=== PATIENT | female | born 1960 | race Caucasian/White ===

== ENCOUNTER 2018-12-17 10:57 | Outpatient (CLI) | payer BC ==
--- NOTE | 2018-12-17 12:16 | RAD ---
PA AND LATERAL VIEWS OF THE CHEST: HISTORY: Cough. FINDINGS: The heart size is normal. The aorta is tortuous. The lungs are well expanded without focal areas of consolidation, pneumothoraces, or pleural effusions. No acute osseous abnormalities are seen. IMPRESSION: No acute process. POS: [facility]
== END 2018-12-17 10:58 | disposition home or self-care (01) ==
LOC: BICRAD 10:57
PROVIDERS: ATTEND Family Medicine
DX: R05 Cough (principal)
CPT/HCPCS: 36415; 71046; 80053; 80061; 83036; 84439; 84443; 86803

== ENCOUNTER 2019-11-16 09:31 | Outpatient (CLI) | payer BC ==
--- NOTE | 2019-11-16 11:41 | RAD ---
CHEST 2 VIEWS: HISTORY: Dyspnea. COMPARISON: 12/17/2018. FINDINGS: Heart size is normal. The lungs are clear. No confluent pneumonia, overt edema, pleural effusion, o r other acute process. IMPRESSION: No acute intrathoracic disease. POS: [facility]
== END 2019-11-16 09:32 | disposition home or self-care (01) ==
LOC: BICRAD 09:31
PROVIDERS: ATTEND Internal Medicine Pulmonary Disease
DX: R06.00 Dyspnea, unspecified (principal)
CPT/HCPCS: 71046

== ENCOUNTER 2020-07-07 07:59 | Inpatient (IN) | payer BC ==
[2020-07-07 08:27] LABS: #Basophils 0.1 thou/uL (0.0-0.2); #Eosinphils 0.3 thou/uL (0.0-0.7); #Lymphocytes 4.8 thou/uL (1.20-3.40); #Monocytes 1.4 thou/uL (0.11-0.59); #Neutrophils 11.6 thou/uL (1.40-6.50); %Basophils 0.7 % (0.0-1.0); %Eosinophils 1.8 % (0.0-10.0); %Lymphocytes 26.2 % (21.0-51.0); %Monocytes 7.8 % (0.0-10.0); %Neutrophils 63.6 % (42.0-75.0); Hemoglobin 16.4 g/dL (12.0-16.0); Mean Corpuscular HGB CONC 32.5 g/dL (32.0-36.0); Mean Corpuscular Hemoglobin 29.9 pg (27.0-31.0); Mean Platelet Volume 8.2 fL (7.4-10.4); Platelet Count 326 thou/uL (130-400); RBC Distribution Width 13.4 % (11.5-14.5); Red Blood Cell (RBC) Count 5.49 mill/uL (4.20-5.40); White Blood Cell (WBC) Count 18.2 thou/uL (4.8-10.8)
--- NOTE | 2020-07-07 08:35 | RAD ---
RADIOGRAPH CHEST 1 VIEW: DATE: 07/07/2020 HISTORY: 60-year-old female with dyspnea and chest pain FINDINGS: The visualized lung swift are clear. The cardiomediastinal silhouette and hilar shadows are normal. The lateral costophrenic angles are sharp. The osseous structures appear normal. There is no pneumothorax. IMPRESSION: Negative.
[2020-07-07 08:46] LABS: ALT (SGPT) 26 U/L (8-55); AST (SGOT) 14 U/L (5-34); Albumin 4.2 g/dL (3.4-4.8); Alkaline Phosphatase 68 U/L (40-110); Anion Gap 15 mmol/L (10-20); BUN (Urea Nitrogen) 17 mg/dL (9.8-20.1); Bilirubin, Total 0.7 mg/dL (0.2-1.2); Calc. Creatinine Clearance 0 mL/min (70-130); Calcium 9.7 mg/dL (7.8-10.44); Carbon Dioxide 29 mmol/L (23-31); Chloride 97 mmol/L (98-107); Globulin 3.3 g/dL (2.4-3.5); Glucose 160 mg/dL (80-115); Potassium 3.9 mmol/L (3.5-5.1); Protein, Total 7.5 g/dL (5.8-8.1); Sodium 137 mmol/L (136-145)
[2020-07-07 09:08] LABS: CKMB 0.8 ng/mL (0-6.6)
[2020-07-07] MEDS ORDERED: Aspirin Chewable 81 MG TAB ONE (09:41)
[2020-07-07 09:53] LABS: Bilirubin Negative (Negative); Blood, Urine Negative (Negative); Clarity Turbid (Clear); Glucose, Urine (Dipstick) Normal (Negative); Ketone, Urine Negative (Negative); Leukocyte 500 Leu/uL (Negative); Nitrite Negative (Negative); Protein, Urine (Dipstick) 30 mg/dL (Neg-Trace); Specific Gravity, Urine 1.024 (1.002-1.036); Urobilinogen Normal mg/dL (Less than 2)
[2020-07-07 10:04] LABS: Bacteria/HPF 2+ HPF (None Seen)
--- NOTE | 2020-07-07 10:08 | CT ---
EXAM: CT angiogram of the chest including 3-D rendering: HISTORY: Chest pain COMPARISON: None FINDINGS: There is adequate opacification of the pulmonary arteries. No evidence for aortic aneurysm or dissection. No convincing CT evidence for acute pulmonary embolism. Minimal patchy small foci of groundglass opacity changes noted including the region of the right lowe r lobe, left lower lobe, and left upper lobe favored to represent minimal pneumonitis. No evidence for mediastinal mass or adenopathy. No evidence for pleural or pericardial effusion. In the left upper quadrant there is some abnormal fat stranding adjacent to the tail of the pancreas, spleen, and splenic Flexure of colon. I would favor this to represent some focal acute pancreatitis of the tail of the pancreas. Conceivably this could represent focal area of diverticulit is of the sigmoid colon but I do not see any other diverticulosis changes. IMPRESSION: No convincing CT evidence for acute pulmonary embolism. Left upper quadrant fat stranding adjacent to the tail of pancreas, spleen, and splenic Flexure of co lai, I favor this to represent acute pancreatitis of the tail of the pancreas. Several small foci of groundglass opacity changes within the lungs, nonspecific but favored to repres ent mild patchy pneumonitis.
[2020-07-07] MEDS ORDERED: cefTRIAXone\\ROCEPHIN 1 GM VIAL ONE (10:39)
[2020-07-07 11:48] LABS: Troponin I 0.017 ng/mL (< 0.028)
--- NOTE | 2020-07-07 13:19 | PDOC.HHP ---
Hospitalist HPI Dyspnea on exertion History of Present Illness: Patient states she was short of breath when she woke up this morning. Denies chest pain or abdominal pain. States dyspnea was worse with exertion. History of HTN, hyperlipidemia, was told she was previously pre-diabetic and history of asthma. Patient received her 2nd COVID vaccine 5 days ago. ED Course: Patient presents to ER with dypsnea on exertion. Denies chest pain. Negative CTA for PE, left upper quadrant fat stranding adjacent to the pancreas. Negative chest xray. Leukocytosis present, elevated D-dimer, elevated glucose, elevated lipase. Patient was given Rocephin 1gm and Aspirin 324mg. Allergies/Adverse Reactions: Allergy/AdvReac Type Severity Reaction Status Date / Time No Known Drug Allergies Allergy Verified 07/07/20 15:49 Comments: atenolol TABLET : Strength - 50 mg : ORAL Patient Dose: 50 mg Oral 2 times a day. atorvastatin TABLET : Strength - 40 mg : ORAL Patient Dose: 1 tab(s) Oral once a day (at bedtime). hydroCHLOROthiazide TABLET : Strength - 25 mg : ORAL Patient Dose: 25 mg Oral once a day. metFORMIN TABLET : Strength - 500 mg : ORAL Patient Dose: 500 mg Oral 2 times a day. Vesicare TABLET : Strength - 10 mg : ORAL Patient Dose: unkown mg Oral once a day. Past History: PMHx: PSHx: FHx: Social: Hospitalist HPI ROS Constitutional: denies: fever, chills, sweats, weakness, malaise, other Eyes: denies: pain, vision change, conjunctivae inflammation, eyelid inflammation, redness, other ENT: denies: ear pain, ear discharge, nose pain, nose discharge, nose congestion, mouth pain, mouth swelling, throat pain, throat swelling, other Respiratory: denies: cough, dry, shortness of breath, hemoptysis, SOB with excertion, pleuritic pain, sputum, wheezing, other Gastrointestinal: denies: nausea, vomiting, abdominal pain, diarrhea, const ipation, melena, hematochezia, other Genitourinary: denies: dysuria, frequency, incontinence, hematuria, retention, other Musculoskeletal: denies: neck pain, shoulder pain, arm pain, back pain, hand pain, leg pain, foot pain, other Skin: denies: rash, lesions, yvette, bruising, other Neurological: denies: weakness, numbness, incoordination, change in speech, confusion, seizures, other All other systems reviewed; all pertinent +/- noted in HPI/Subj Hospitalist Exam General Appearance: NAD (coversationally dyspneic), awake alert Eye: PERRL, anicteric sclera ENT: normocephalic atraumatic, no oropharyngeal lesions, moist mucosa Neck: supple, symmetric, no JVD, no thyromegaly, no lymphadenopathy, no carotid bruit Heart: RRR, no murmur, no gallops, no rubs, normal peripheral pulses Respiratory: CTAB, no wheezes, no rales, no ronchi, normal chest expansion, no tachypnea, normal percussion Gastrointestinal: soft, non-tender, non-distended, normal bowel sounds, no palpable masses, no hepatomegaly, no splenomegaly, no bruit Extremities: no cyanosis, no clubbing, no edema Skin: normal turgor, no lesions, no rashes Neurological: cranial nerve grossly intact, normal sensation to touch, no weakness, no focal deficits, no new deficit Musculoskeletal: normal tone, normal strength, no muscle wasting Psychiatric: normal affect, normal behavior, A&O x 3 Hospitalist Results Result Diagrams: 07/07/20 08:11 07/07/20 08:11 Lab results: Laboratory Last Values WBC 18.2 thou/uL (4.8-10.8) H 07/07/20 08:11 RBC 5.49 mill/uL (4.20-5.40) H 07/07/20 08:11 Hgb 16.4 g/dL (12.0-16.0) H 07/07/20 08:11 Hct 50.5 % (36.0-47.0) H 07/07/20 08:11 MCV 92.0 fL (78.0-98.0) 07/07/20 08:11 MCH 29.9 pg (27.0-31.0) 07/07/20 08:11 MCHC 32.5 g/dL (32.0-36.0) 07/07/20 08:11 RDW 13.4 % (11.5-14.5) 07/07/20 08:11 Plt Count 326 thou/uL (130-400) 07/07/20 08:11 MPV 8.2 fL (7.4-10.4) 07/07/20 08:11 Neutrophils % 63.6 % (42.0-75.0) 07/07/20 08:11 Lymphocytes % 26.2 % (21.0-51.0) 07/07/20 08:11 Monocytes % 7.8 % (0.0-10.0) 07/07/20 08:11 Eosinophils % 1.8 % (0.0-10.0) 07/07/20 08:11 Basophils % 0.7 % (0.0-1.0) 07/07/20 08:11 Neutrophils # 11.6 thou/uL (1.40-6.50) H 07/07/20 08:11 Lymphocytes # 4.8 thou/uL (1.20-3.40) H 07/07/20 08:11 Monocytes # 1.4 thou/uL (0.11-0.59) H 07/07/20 08:11 Eosinophils # 0.3 thou/uL (0.0-0.7) 07/07/20 08:11 Basophils # 0.1 thou/uL (0.0-0.2) 07/07/20 08:11 D-Dimer 0.97 *mcg/mL (0.27-0.43) H 07/07/20 08:11 Sodium 137 mmol/L (136-145) 07/07/20 08:11 Potassium 3.9 mmol/L (3.5-5.1) 07/07/20 08:11 Chloride 97 mmol/L (98-107) L 07/07/20 08:11 Carbon Dioxide 29 mmol/L (23-31) 07/07/20 08:11 Anion Gap 15 mmol/L (10-20) 07/07/20 08:11 BUN 17 mg/dL (9.8-20.1) 07/07/20 08:11 Creatinine 1.07 mg/dL (0.6-1.1) 07/07/20 08:11 Estimated GFR (MDRD) 52 07/07/20 08:11 Glucose 160 mg/dL (80-115) H 07/07/20 08:11 Lactic Acid 1.5 mmol/L (0.5-2.2) 07/07/20 11:17 Calcium 9.7 mg/dL (7.8-10.44) 07/07/20 08:11 Total Bilirubin 0.7 mg/dL (0.2-1.2) 07/07/20 08:11 AST 14 U/L (5-34) 07/07/20 08:11 ALT 26 U/L (8-55) 07/07/20 08:11 Alkaline Phosphatase 68 U/L (40-110) 07/07/20 08:11 CK-MB (CK-2) 0.8 ng/mL (0-6.6) 07/07/20 08:11 Troponin I 0.017 ng/mL (< 0.028) 07/07/20 11:22 Serum Total Protein 7.5 g/dL (5.8-8.1) 07/07/20 08:11 Albumin 4.2 g/dL (3.4-4.8) 07/07/20 08:11 Globulin 3.3 g/dL (2.4-3.5) 07/07/20 08:11 Albumin/Globulin Ratio 1.3 g/dL (1.2-2.2) 07/07/20 08:11 Lipase 192 U/L (8-78) H 07/07/20 08:11 Urine Color Yellow (Yellow) 07/07/20 09:35 Urine Clarity Turbid (Clear) A 07/07/20 09:35 Urine pH 6.0 (5.0-9.0) 07/07/20 09:35 Ur Specific [place] 1.024 (1.002-1.036) 07/07/20 09:35 Urine Protein 30 mg/dL (Neg-Trace) A 07/07/20 09:35 Urine Glucose (UA) Normal mg/dL (Negative) 07/07/20 09:35 Urine Ketones Negative mg/dL (Negative) 07/07/20 09:35 Urine Blood Negative (Negative) 07/07/20 09:35 Urine Nitrite Negative (Negative) 07/07/20 09:35 Urine Bilirubin Negative (Negative) 07/07/20 09:35 Urine Urobilinogen Normal mg/dL (Less than 2) 07/07/20 09:35 Ur Leukocyte Esterase 500 Gena/uL (Negative) A 07/07/20 09:35 Urine RBC 4-6 HPF (0-3) A 07/07/20 09:35 Urine WBC 11-20 HPF (0-3) A 07/07/20 09:35 Ur Squamous Epith Cells 11-20 HPF (0-3) A 07/07/20 09:35 Urine Bacteria 2+ HPF (None Seen) A 07/07/20 09:35 Hyaline Casts 0-3 LPF (0-3) 07/07/20 09:35 Hospitalist H&P A/P (1) Dyspnea on exertion Code(s): R06.00 - DYSPNEA, UNSPECIFIED Status: Acute (2) Diabetes mellitus, type 2 Status: Acute (3) Hypertension Code(s): I10 - ESSENTIAL (PRIMARY) HYPERTENSION Status: Chronic (4) Hyperlipidemia Code(s): E78.5 - HYPERLIPIDEMIA, UNSPECIFIED Status: Chronic Plan: 60 y/o female present for Dyspnea on exertion. Denies any chest pain or abdominal pain. PLAN: Dyspnea on exertion: Trend Troponins. Cardiology Consult Hypertension: Vital signs Q4. Continue home Atenolol dosage. Continue home HCTZ dosage. Diabetes: Accucheck AC & HS Continue home Metformin dose. Draw HgbA1c - result of 6.3 Hyperlipidemia: Continue home Atorvastatin dosage. Patient is FULL CODE.
[2020-07-07] MEDS ORDERED: Dextrose 50% Abboject 50 ML SYRINGE SLOW IVP PRN (13:33)
[2020-07-07] MEDS ORDERED: Dextrose 5% in Water 1,000 ML IV PRN (13:33)
[2020-07-07 14:21] LABS: Hemoglobin A1c 6.3 % (4.0-6.0)
[2020-07-07] MEDS ORDERED: Iopamidol-370 76% 500 ML 1 ML ONE (14:31)
[2020-07-07] MEDS: Sodium Chloride 0.9% 1,000 ML IV SCH (15:43)
--- NOTE | 2020-07-07 15:48 | CON ---
DATE OF CONSULTATION: 07/07/2020 REASON FOR CONSULTATION: Shortness of breath. HISTORY OF PRESENT ILLNESS: Ms. Casey is a very pleasant 60-year-old white female. She is a nurse practitioner/PA in our emergency room. She woke up this morning and she was not feeling well. She felt short of breath that was worse with any exertion. She was diaphoretic. She came into the ER and was found to have elevated white count, elevated lipase. D-dimer was elevated, so a CT scan was performed that showed possibly an inflamed pancreas, also some pneumonitis on the basis of her of her lungs. So Cardiology has been consulted for this. She denies any chest pain, tightness, pressure, only this shortness of breath with exertion and she is not feeling well. PAST MEDICAL HISTORY: 1. Hypertension. 2. Hyperlipidemia. 3. Adult onset asthma. 4. Prediabetes. OUTPATIENT MEDICATIONS: 1. Atenolol 50 mg twice a day. 2. Atorvastatin 40 mg at bedtime. 3. Hydrochlorothiazide 25 mg a day. 4. Metformin 500 mg twice a day. 5. VESIcare 10 mg a day. SOCIAL HISTORY: Former tobacco use, none for many years now. SURGICAL HISTORY: 1. x2. 2. Right shoulder surgery x2. ALLERGIES: NO KNOWN DRUG ALLERGIES. FAMILY HISTORY: Noncontributory. REVIEW OF SYSTEMS: A 12-point review of systems was done and was found to be negative other than stated in the history of present illness. PHYSICAL EXAMINATION: VITAL SIGNS: Temperature 98.4, pulse 72, respiratory rate 20, saturating 94% on room air, blood pressure 118/62. GENERAL: Awake, alert, oriented x3, in no distress. HEENT: Normocephalic, atraumatic. NECK: Supple. LUNGS: Clear at the bases. CARDIOVASCULAR: S1 and S2. No S3 or S4. No murmurs. ABDOMEN: Soft. Positive bowel sounds. EXTREMITIES: No edema. SKIN: Warm and dry. LABORATORY DATA: Laboratory work was reviewed. White count of 18, hemoglobin of 16.4, hematocrit 50, platelet count of 326. Coags, D-dimer was high. Chemistry showed sodium 137, potassium is 3.9, chloride of 97, carbon dioxide of 29, anion gap of 15, BUN of 17, creatinine 1.07, GFR 52, glucose of 160, calcium of 9.7. Total bilirubin of 0.7. AST and ALT are normal, alkaline phosphatase was 68. CK-MB was 0.8, and troponin 0.036, which is in the indeterminate range. However, in the next draw x2 has been in the normal range at 0.017 and 0.020. Lipase was 192. Hemoglobin A1c was 6.3. Lactic acid was 1.5. Albumin was 4.2. Chest x-ray shows no acute cardiopulmonary issues. CT of the abdomen and the chest showed no evidence of pulmonary embolism. There is a left upper quadrant fat stranding right next to the tail of the pancreas, spleen, and splenic flexure of the colon that is thought to be pancreatitis of the tail of the pancreas and there are several small foci of ground-glass opacity changes within the lungs which are nonspecific but may represent mild patchy pneumonitis. ASSESSMENT: 1. Shortness of breath. 2. Possible acute pancreatitis. 3. Acute pneumonitis. PLAN: 1. We will get an echocardiogram to assess LV function and valvular structures. 2. We will ask GI to evaluate to see if they think that this is in fact a pancreatitis or if there is any alternative diagnosis that could explain the abdominal findings coupled with the lung findings. 3. Unlikely to be cardiac in nature. At this point, I am not too worried about her heart. Thank you for letting us participate in the care of your patient. We will follow. Job ID: [id number]
[2020-07-07 15:50] VITALS: BMI 36.1
[2020-07-07] MEDS: Ibuprofen 200 MG TAB PO PRN (19:42)
[2020-07-08] MEDS: Sodium Chloride 0.9% 1,000 ML IV SCH ×2 (01:24→10:10)
[2020-07-08] MEDS ORDERED: cefTRIAXone Sodium 1,000 MG in Syringe 0 ML IVPB SCH (07:00)
[2020-07-08] MEDS: Ibuprofen 200 MG TAB PO PRN ×2 (08:26→17:48)
[2020-07-08] MEDS: Enoxaparin Sodium 40 MG/0.4 ML SYRINGE SC SCH (08:26)
[2020-07-08 09:48] LABS: Hemoglobin 14.9 g/dL (12.0-16.0); Mean Corpuscular HGB CONC 35.3 g/dL (32.0-36.0); Mean Corpuscular Hemoglobin 33.3 pg (27.0-31.0); Mean Corpuscular Volume 94.4 fL (78.0-98.0); Platelet Count 224 thou/uL (130-400); RBC Distribution Width 13.4 % (11.5-14.5); Red Blood Cell (RBC) Count 4.48 mill/uL (4.20-5.40); White Blood Cell (WBC) Count 14.5 thou/uL (4.8-10.8)
[2020-07-08 10:17] LABS: ALT (SGPT) 20 U/L (8-55); AST (SGOT) 14 U/L (5-34); Albumin 3.5 g/dL (3.4-4.8); Alkaline Phosphatase 57 U/L (40-110); Anion Gap 13 mmol/L (10-20); BUN (Urea Nitrogen) 13 mg/dL (9.8-20.1); Bilirubin, Total 0.8 mg/dL (0.2-1.2); Calc. Creatinine Clearance 126 mL/min (70-130); Calcium 8.8 mg/dL (7.8-10.44); Carbon Dioxide 25 mmol/L (23-31); Chloride 102 mmol/L (98-107); Globulin 3.1 g/dL (2.4-3.5); Glucose 134 mg/dL (80-115); Lipase 66 U/L (8-78); Potassium 3.7 mmol/L (3.5-5.1); Protein, Total 6.6 g/dL (5.8-8.1); Sodium 136 mmol/L (136-145)
[2020-07-08] MEDS ORDERED: cefTRIAXone\\ROCEPHIN 1 GM in Sodium Chloride 0.9% 100 ML IVPB SCH (11:00)
--- NOTE | 2020-07-08 13:35 | RAD ---
EXAM: Chest PA and lateral: HISTORY: Shortness of breath COMPARISON: 11/16/2019, 07/07/2020 FINDINGS: Heart size:Within normal limits. Lungs:Minimal linear parenchymal changes in the left lower lobe evidence for atelectasis with minimal costophrenic angle blunting evidence for small pleural effusion. Unremarkable right lung. IMPRESSION: Developing left lower lobe horizontal parenchymal changes evidence for minimal subsegmental atelectas is with probable small left pleural effusion but no other acute process.
[2020-07-08 13:54] LABS: Actual Bicarbonate (HCO3a) 27.6 mEq/L (22-28); Base Excess (BEa) 3.1 mEq/L (-2.0 to +3.0); CO2 Tension 41.7 mmHg (35.0-45.0); Calcium, Ionized (arterial) 1.16 mmol/L (1.12-1.30); Carboxyhemoglobin (COHb) 1.5 gm% (0.0-3.0); Hemoglobin (Hb) 15.2 g/dL (12.0-16.0); O2 Tension (PaO2), arterial 63.9 mmHg (> 80.0); Potassium - ABG Lab 3.47 mmol/L (3.70-5.30); pH, Arterial 7.44 (7.35-7.45)
[2020-07-08 13:58] LABS: ALV-art Gradient 33.705 mmHg (0-20); Puncture Site LRA
[2020-07-08 15:25] LABS: SARS-CoV-2 IgG Ab Non-Reactive (NonReactive); SARS-CoV-2 IgG Index 0.08 S/CO (< 1.40)
--- NOTE | 2020-07-08 15:59 | PDOC.CPN ---
- Subjective Date: 07/08/20 Time: 15:57 Interval history: She continues to feel SOB with exertion, her O2 sats when walking go down to the mid to low 80's. No chest pain, no abdominal pain. Her lipase is back to normal. - Review of Systems General: denies: fever/chills, weight/appetite/sleep changes, night sweats, fatigue Respiratory: reports: shortness of breath, exercise intolerance. denies: cough, congestion Cardiovascular: denies: chest pain, palpitation, edema, paroxysmal nocturnal dyspnea, orthopnea Gastrointestinal: denies: nausea, vomiting, diarrhea, constipation, abd pain, GI bleeding Musculoskeletal: denies: pain, tenderness, stiffness, swelling, arthritis/arthralgias Neurological: denies: numbness, syncope, seizure, weakness - Objective Allergies/Adverse Reactions: Allergies Allergy/AdvReac Type Severity Reaction Status Date / Time No Known Drug Allergies Allergy Verified 07/07/20 15:49 Visit Medications: Current Medications Dextrose/Water (Dextrose 50% Abboject 50 Ml Syringe) 25 gm SLOW IVP PRN PRN PRN Reason: Hypoglycemia Enoxaparin Sodium (Enoxaparin Sodium 40 Mg/0.4 Ml Syringe) 40 mg SC 0900 [facility] Last Admin: 07/08/20 08:26 Dose: 40 mg Documented by: Glucagon (Glucagon 1 Mg/Ml Vial) 1 mg IM PRN PRN PRN Reason: Hypoglycemia Dextrose/Water (D5w) 1,000 mls @ 0 mls/hr IV .Q0M PRN PRN Reason: Hypoglycemia Ceftriaxone Sodium 1 gm/ (Sodium Chloride) 100 mls @ 200 mls/hr IVPB 1100 [facility] Last Admin: 07/08/20 10:10 Dose: 100 mls Documented by: Ibuprofen (Ibuprofen 200 Mg Tab) 400 mg PO Q4H PRN PRN Reason: Headache, Aches or Pain Last Admin: 07/08/20 08:26 Dose: 400 mg Documented by: Loratadine (Loratadine 10 Mg Tab) 10 mg PO DAILY PRN PRN Reason: Allergies Last Admin: 07/08/20 12:37 Dose: 10 mg Documented by: Mometasone Furoate/Formoterol Fumar (Mometasone 200 Mcg/Formoterol 5 Mcg 120 Puff Inhaler) 1 puff INH BID-RT [facility] Vital Signs & Weight: Vital Signs Temp Pulse Resp BP Pulse Ox 07/08/20 11:57 97.6 F 92 20 110/56 L 95 07/08/20 08:13 99.1 F 100 24 H 127/58 L 92 L 07/08/20 04:04 98.2 F 85 16 115/62 Weight 216 lb 14.72 oz - Physical Exam General: alert & oriented x3 HEENT: mucus membranes moist Neck: supple neck Cardiac: regular rate and rhythm Lungs: other (Left base crackles.) Neuro: grossly intact Abdomen: active bowel sounds Extremities: no edema Skin: clear Musculoskeletal: no pain - Labs Result Diagrams: 07/08/20 09:28 07/08/20 09:28 Troponin/CKMB CK-MB (CK-2) 0.8 ng/mL (0-6.6) 07/07/20 08:11 Troponin I 0.020 ng/mL (< 0.028) 07/07/20 14:03 - Telemetry Sinus rhythms and dysrhythmias: sinus rhythm - Assessment/Plan Assessment/Plan: 1. SOB 2. Possible pneumonitis? 3. Possible UTI 4. Possible pancreatitis, unlikely, values all normalized . PLAN: - Lipase back to normal, no symptoms to suggest pancreatitis, unlikely this is an issue. - She is feeling better with only IV rocephin. - Her CXR today showed linear opacity on left base which goes with her physical exam with crackles on that side. - Unlikely her SOB is cardiac in nature with normal LV function, and normal BNP and troponins. - I suspect a developing pulmonary infection? - Would recommend pulmonary consultation and possibly ID.
--- NOTE | 2020-07-08 16:11 | CON ---
DATE OF CONSULTATION: 07/08/2020 REASON FOR CONSULTATION: Possible pancreatitis. CONSULTING PROVIDER: Brodie Cox MD. HISTORY OF PRESENT ILLNESS: The patient is a 60-year-old female with past medical history of hypertension, hyperlipidemia, asthma, impaired fasting glucose, and GERD, presenting with complaints of shortness of breath. She states that she was in her usual state of health until yesterday morning when upon traveling from her car to her place of work, she became increasingly short of breath with exertion and found it very difficult to catch her breath even with stopping physical activity. She currently works in the ER and was evaluated by the physicians in the ER at that time and was also noted to have conversational dyspnea as well. However, she denied any additional symptoms associated with that including no symptoms of nausea, vomiting, fevers, chills, hematemesis, melena, hematochezia, abdominal pain, dysphagia, odynophagia, diarrhea, constipation, or recent weight loss. She also denied any chest pain or pain with deep inspiration. Subsequently, she underwent evaluation in the ER and was noted to have a significantly elevated white blood cell count in addition to CT findings concerning for an inflammatory/infective process in the bilateral lower lobes of the lung, but also with inflammation around the distal pancreatic tail concerning for the presence of acute pancreatitis. Today, she states that she remains relatively unchanged and continues to have the shortness of breath primarily with exertion only. She currently denies any abdominal pain, nausea, vomiting, recent alcohol abuse or changes in her medications. REVIEW OF SYSTEMS: A 10 category review of systems was obtained with all responses negative except for the pertinent positives as listed in HPI. PAST MEDICAL HISTORY: As per HPI. PAST SURGICAL HISTORY: x2, right shoulder surgery x2. FAMILY HISTORY: Denies any GI malignancies. SOCIAL HISTORY: Denies any tobacco or illicit drug use although she is a former smoker. Drinks approximately 1 to 2 glasses of wine every 1 to 2 weeks. OUTPATIENT MEDICATIONS: 1. Atenolol 50 mg twice a day. 2. Atorvastatin 40 mg at bedtime. 3. Hydrochlorothiazide 25 mg daily. 4. Metformin 500 mg twice daily. 5. VESIcare 10 mg daily. ALLERGIES: NO KNOWN DRUG ALLERGIES. PHYSICAL EXAMINATION: VITAL SIGNS: Temperature 97.6, pulse 92, blood pressure 110/56, respiratory rate 20, saturating 95% on room air. GENERAL: The patient was lying in bed, in no acute distress. Alert and oriented x4. No conversational dyspnea noted today. HEENT: Normocephalic, atraumatic. NECK: Supple. No JVD or scleral icterus noted. CARDIOVASCULAR: Regular rate and rhythm with no discernible murmurs, gallops, or rubs. RESPIRATORY: Clear to auscultation in the bilateral upper lung swift. Mild diminished air flow in the bilateral lower lung swift, but was difficult to discern. ABDOMEN: Normoactive bowel sounds. Soft, nontender, and nondistended. EXTREMITIES: No cyanosis, clubbing, or edema. LABORATORY DATA: CBC with a white blood cell count of 14.5, hemoglobin 14.9, hematocrit 42.2, platelets 224. Chemistry with a sodium of 136, potassium 3.7, chloride 102, CO2 of 25, BUN 13, creatinine 0.72, glucose 134. AST 14, ALT 20, alkaline phosphatase 57, total bilirubin 0.8. Lipase on admission 192, lipase today 66. Albumin 4.2. Urinalysis was consistent with contamination. IMAGING DATA: CT scan of the chest was performed on July 07, 2020, which showed no convincing CT evidence for acute pulmonary embolism. However, minimal patchy small foci of ground-glass opacities were seen in the right lower lobe, left lower lobe and left upper lobe, favored to represent a minimal pneumonitis. There was no evidence of mediastinal mass or adenopathy. In the left upper quadrant, there was some abnormal fat stranding adjacent to the tail of the pancreas, spleen, and splenic flexure of the colon with the Radiology read favoring focal acute pancreatitis in the tail of the pancreas. It could represent focal changes with diverticulitis of the sigmoid colon, but there were no associated diverticular changes in the region. ASSESSMENT AND PLAN: The patient is a 60-year-old female with past medical history of hypertension, hyperlipidemia, asthma, impaired fasting glucose, and GERD, presenting with significant dyspnea on exertion and abnormal GI imaging showing possible pancreatitis versus diverticulitis. Abnormal GI imaging. The patient initially presented to the ER with significant dyspnea on exertion that was associated with conversational dyspnea and diaphoresis of skin. She is currently undergoing a pulmonary and cardiology workup as part of her symptoms associated with that. However, during the course of her workup, she had a CT scan of the chest (noncontrast) that showed the presence of nonspecific fat stranding in the region of the tail of the pancreas and the hepatic flexure of the colon. On further evaluation of her physical exam and laboratory findings, she does have an elevated white cell count that could be indicative of an inflammatory or infectious type process. However, her lipase was not greater than three times upper limit of normal nor does she have any typical abdominal pain consistent with acute pancreatitis. At this time, she only meets one criteria for acute pancreatitis and would necessarily need to have increased abdominal pain and laboratory findings consistent with the diagnosis in order to confirm the diagnosis. Also, she does have some inflammation about the splenic flexure that may be indicative of diverticular disease, but she does not have any pain in any abdominal quadrants nor has she had any significant change in her bowel habits that may clue into a diverticular type picture. At this time given her significantly elevated white blood cell count, the minimal ground-glass opacity seen on CT, conversational dyspnea and dyspnea on exertion, these findings seem to be more consistent with a COVID-19 infection. There are some case reports of a COVID infection causing acute pancreatitis, but in those cases presented, they were more obvious for acute pancreatitis. RECOMMENDATIONS: 1. Would continue with Cardiology and Pulmonary workup as you are doing. 2. The patient does not currently meet criteria for acute pancreatitis nor does she meet criteria for acute diverticulitis. No treatment for pancreatitis or antibiotic treatment for diverticulitis is indicated at this time. 3. No endoscopic evaluation is indicated at this time especially in light of worsening respiratory status. 4. Would follow up on her COVID serologies and/or review literature for possible side effects related to administration of the second dose of the Moderna vaccine. With no obvious GI abnormalities or problems, I would sign off at this time. Please call with any additional questions. Job ID: [id number]
--- NOTE | 2020-07-08 18:12 | PDOC.HOSPP ---
- Subjective Encounter Date: 07/08/20 Encounter Time: 09:00 Subjective: F/u: hypoxia on exertion The patient states she still feels short of breath ambulating to the bathroom. She ambulated and dropped to 89% after two minutes. Nurse stated she appeared congested. She was given claritin and symbicort and after repeat home oxygen evaluation showed that she was 89% on exertion. The patient denies cough, runny nose, sore throat. She states she takes symbicort at home for asthma and as long as she takes it she doesn't get the cough She denies abdominal pain, nausea, or vomiting. She had some left UQ pain yesterday which resolved - Objective Vital Signs & Weight: Vital Signs (12 hours) Temp Pulse Resp BP Pulse Ox 07/08/20 17:48 99.9 F H 07/08/20 16:30 98.1 F 94 14 118/61 94 L 07/08/20 11:57 97.6 F 92 20 110/56 L 95 07/08/20 08:13 99.1 F 100 24 H 127/58 L 92 L Weight Weight 216 lb 14.72 oz I&O: 07/07/20 07/08/20 07/09/20 06:59 06:59 06:59 Intake Total 640 Balance 640 Result Diagrams: 07/08/20 09:28 07/08/20 09:28 Additional Labs: Accuchecks 07/08/20 07/08/20 07/08/20 16:40 11:42 05:52 POC Glucose 136 H 150 H 121 H 07/07/20 20:29 POC Glucose 134 H Hospitalist ROS - Review of Systems Constitutional: denies: fever, chills - Medication Medications: Active Medications Generic Name Dose Route Start Last Admin Trade Name Freq PRN Reason Stop Dose Admin Enoxaparin Sodium 40 mg 07/08/20 09:00 07/08/20 08:26 Enoxaparin Sodium 40 Mg/0.4 Ml Syringe SC 40 mg 0900 ROCCO Administration Ceftriaxone Sodium 1 gm/ 100 mls @ 200 mls/hr 07/08/20 11:00 07/08/20 10:10 Sodium Chloride IVPB 100 mls 1100 ROCCO Administration Ibuprofen 400 mg 07/07/20 19:26 07/08/20 17:48 Ibuprofen 200 Mg Tab PO 400 mg Q4H PRN Administration Headache, Aches or Pain Loratadine 10 mg 07/09/20 09:00 07/08/20 12:37 Loratadine 10 Mg Tab PO 10 mg DAILY PRN Administration Allergies Hospitalist Exam Vitals: Vital Signs (12 hours) Temp Pulse Resp BP Pulse Ox 07/08/20 17:48 99.9 F H 07/08/20 16:30 98.1 F 94 14 118/61 94 L 07/08/20 11:57 97.6 F 92 20 110/56 L 95 07/08/20 08:13 99.1 F 100 24 H 127/58 L 92 L Weight Weight 216 lb 14.72 oz General Appearance: NAD, awake alert Eye: PERRL, anicteric sclera ENT: normocephalic atraumatic, no oropharyngeal lesions Neck: no JVD Heart: RRR, no murmur, no gallops, no rubs Respiratory: CTAB, no wheezes, no rales, no ronchi Gastrointestinal: soft, non-tender, non-distended, normal bowel sounds Extremities: no cyanosis, no clubbing, no edema Skin: normal turgor, no lesions, no rashes Hosp A/P - Plan CTA thorax: acute pancreatitis of tail of pancreas. LUQ fat stranding. Ground glass opacity, mild patchy pneumonitis ECHO: EF 60-65%, grade 1 diastolic dysfunction This is a 60 year old female who presented to the Er with shortness of breath on exertion, still hypoxic currently Dyspnea on exertion with pneumonitis - troponins negative. ECHO showed diastolic dysfunction. Cardiology does not think it is cardiac - she denies cough. Does have pneumonitis on CT scan. COVID antibody negative. She does have low grade temp 99 and high CRP. Will try dose of prednisone - will consult pulmonary in the am UTI - patient had a WBC of 18, which has come down to 14. UA showed turbid urine, 11-20 WBC. Started on ceftriaxone, will continue for now. Preliminary blood and urine cultures negative History of asthma - continue home inhaled steroids Prediabetes - A1C 6.3 Hypothyroidism - check TSH. Continue levothyroxine
[2020-07-08] MEDS: Mometasone 200 MCG/Formoterol 5 MCG 120 PUFF INHALER INH SCH (18:23)
[2020-07-08] MEDS ORDERED: predniSONE 20 MG TAB PO SCH (19:15)
[2020-07-08] MEDS ORDERED: Levothyroxine 175 MCG TAB PO SCH (19:15)
[2020-07-09] MEDS ORDERED: Levothyroxine 175 MCG TAB PO SCH (06:00)
[2020-07-09] MEDS: Mometasone 200 MCG/Formoterol 5 MCG 120 PUFF INHALER INH SCH (08:09)
[2020-07-09] MEDS ORDERED: Loratadine 10 MG TAB PO PRN (09:00)
[2020-07-09] MEDS ORDERED: Cefdinir 300 MG CAP PO SCH (09:00)
[2020-07-09] MEDS: Enoxaparin Sodium 40 MG/0.4 ML SYRINGE SC SCH (09:20)
[2020-07-09 10:17] LABS: Hemoglobin 14.9 g/dL (12.0-16.0); Mean Corpuscular HGB CONC 33.5 g/dL (32.0-36.0); Mean Corpuscular Hemoglobin 31.9 pg (27.0-31.0); Mean Corpuscular Volume 95.2 fL (78.0-98.0); Platelet Count 244 thou/uL (130-400); RBC Distribution Width 13.1 % (11.5-14.5); Red Blood Cell (RBC) Count 4.67 mill/uL (4.20-5.40); White Blood Cell (WBC) Count 12.9 thou/uL (4.8-10.8)
[2020-07-09] MEDS ORDERED: Hydrochlorothiazide 25 MG TAB PO SCH (11:30)
[2020-07-09] MEDS ORDERED: predniSONE 20 MG TAB PO SCH (11:30)
--- NOTE | 2020-07-09 12:54 | PDOC.DS.DS ---
Provider Date of Admission: 07/07/20 11:10 Date of Discharge: 07/09/20 Admitting Provider: Debra Cartagena MD Consultations: Cardiology (Dr. Cox), Pulmonary (Dr. Zamora) Primary Care Physician: Geovany Pastrana, DO Course Hospital Course: Discharge Diagnoses: Dyspnea on exertion secondary to pneumonitis Sinus tachycardia on exertion Hypertension Prediabetes Brief HPI: This is a 60 year old female who presented to the hospital due to feeling short of breath on exertion while she was driving to work. The patient stated she was diaphoretic, but had no chest pain or palpitations. She had received her second COVID vaccine 5 days ago. She had WBC of 18. UA showed tu rbid urine with 11-20 squamous epithelial cells. CTA showed patchy pneumonitis. She was given IV ceftriaxone and admitted for further workup. Hospital Course: Dyspnea on exertion with pneumonitis: the patient had three sets of troponins that were negative. ECHO showed diastolic dysfunction. Cardiology was consulted and did not think this was a cardiac cause of shortness of breath. When the patient was ambulating, she was noted to be congested by nursing staff and had a respiratory rate of 30 and oxygen saturation of 89% on room air after walking for two minutes. CRP was elevated at 20. The patient was started on prednisone and dulera with significant improvement. Repeat ambulatory oxygen saturation showed that she maintained her saturation above 91% on room air. She was persistently tachycardic to 115 while ambulating however. Cardiology did not feel the tachycardia needed to be treated since it was likely a compensatory response. The patient was discharged with three more days of prednisone to complete a five day course, and she was advised to resume her symbicort. She was also discharged with cefdinir and doxycycline for five more days to complete 7 days of antibiotics. She will follow up with Dr. Zamora in a month and Dr. Cox in a week. Leukocytosis: the patinet had a WBC Of 18 which improved to 12.9. CTA showed pneumonitis. UA showed turbid urine with 11-20 WBC and squamous epithelial cells. Urine culture showed 10,000 to 25,000 CFU and she had no symptoms of a UTI. Blood cultures were negative. She should get a repeat CBC in a week. Prediabetes: A1C was 6.3. The patient will be resumed on her home metformin Hypertension: the patient states she was on metoprolol . THis will be discontinued per cardiology recommendations due to her history of asthma. SHe will resume her hydrochlorothiazide. Pertinent Studies: Chest Xray 07/07: negative CTA thorax 07/07: groundglass opacity in the right lower lobe, left lower lobe and left upper lobe representing minimal pneuomnitis. LUQ fat stranding possibly representing acute pancreatitis of the tail of the pancreas. Chest Xray 07/08: developing left lower lobe horizontal parenchymal changes with probable small left pleural effusion Resuscitation Status: 07/07/20 13:33 Resuscitation Status Routine Co-Sign Provider: Resuscitation Status: FULL: Full Resuscitation Lab Results: 07/09/20 10:00 07/08/20 09:28 Abnormal Lab Results - Last 48 hrs 07/07/20 14:03: Hemoglobin A1c 6.3 H 07/08/20 09:28: WBC 14.5 H, MCH 33.3 H 07/08/20 09:28: Albumin/Globulin Ratio 1.1 L 07/08/20 13:11: ABG O2 Sat (Measured) 93.0 L, ABG Base Excess 3.1 H, ABG Oxyhemoglobin 91.3 L, ABG Deoxyhemoglobin 6.9 H, A-a O2 Gradient 33.705 H, Potassium 3.47 L 07/08/20 15:40: C-Reactive Protein 20.80 H 07/08/20 15:40: Ferritin 386.46 H 07/08/20 15:40: ESR Westergren 46 H 07/08/20 15:40: D-Dimer 1.89 H 07/09/20 10:00: WBC 12.9 H, MCH 31.9 H Microbiology - Entire Visit 07/07/20 09:35 Urine clean catch Urine Culture - Final 07/07/20 11:17 Venous blood - Right Hand Blood Culture - Preliminary Specimen has been received and culture in progress. No Growth to date. 07/07/20 11:17 Venous blood - Right Arm Blood Culture - Preliminary Specimen has been received and culture in progress. No Growth to date. Vitals: Vital Signs (12 hours) Temp Pulse Resp BP Pulse Ox 07/09/20 12:09 98.6 F 85 17 120/84 97 07/09/20 08:15 97 07/09/20 08:09 94 16 93 L 07/09/20 03:51 97.8 F 88 18 100/59 L 92 L Weight Weight 218 lb 1.6 oz Physical Exam: The patient was seen and examined on the day of discharge. General Appearance: NAD, awake alert Eye: PERRL, anicteric sclera ENT: normocephalic atraumatic, no oropharyngeal lesions Neck: no JVD Respiratory: no wheezes, no rales, no ronchi, normal percussion Respiratory - other findings: diminished breath sounds in the left lower lobe Cardiovascular: RRR, no murmur, no gallops, no rubs Gastrointestinal: soft, non-tender, non-distended, normal bowel sounds Extremities: no cyanosis, no clubbing, no edema Skin: normal turgor, no lesions, no rashes Problem Time Spent in discharge related activities (mins): 30 Plan Prescriptions: Cefdinir [Omnicef] 300 mg PO BID #9 cap Doxycycline [Vibramycin] 100 mg PO BID #10 cap Home Medications: Medication Instructions Recorded Confirmed Type Hydrochlorothiazide 25 mg PO BID 07/07/20 07/07/20 History Levothyroxine Sodium 175 mcg PO QAM 07/07/20 07/07/20 History [Levothyroxine] metFORMIN [Glucophage] 500 mg PO BID-WM 07/07/20 07/07/20 History Cefdinir [Omnicef] 300 mg PO BID #9 cap 07/09/20 Rx Doxycycline [Vibramycin] 100 mg PO BID #10 cap 07/09/20 Rx Allergies: No Known Drug Allergies Allergy (Verified 07/07/20 15:49) Activity:: Activity as Tolerated Nourishment:: Heart Healthy Diet Referrals: Geovany Pastrana DO [Primary Care Provider] - Disposition: HOME Quality CORE MEASURES:: N/A
--- NOTE | 2020-07-09 14:19 | PDOC.CPN ---
- Subjective Date: 07/09/20 Time: 14:18 Interval history: Feeling much better. Still SOB but improved. - Review of Systems General: denies: fever/chills, weight/appetite/sleep changes, night sweats, fatigue Respiratory: reports: shortness of breath. denies: cough, congestion, exercise intolerance Cardiovascular: denies: chest pain, palpitation, edema, paroxysmal nocturnal dyspnea, orthopnea Gastrointestinal: denies: nausea, vomiting, diarrhea, constipation, abd pain, GI bleeding Musculoskeletal: denies: pain, tenderness, stiffness, swelling, arthrit is/arthralgias Neurological: denies: numbness, syncope, seizure, weakness - Objective Allergies/Adverse Reactions: Allergies Allergy/AdvReac Type Severity Reaction Status Date / Time No Known Drug Allergies Allergy Verified 07/07/20 15:49 Visit Medications: Current Medications Cefdinir (Cefdinir 300 Mg Cap) 300 mg PO BID [facility] Last Admin: 07/09/20 09:19 Dose: 300 mg Documented by: Dextrose/Water (Dextrose 50% Abboject 50 Ml Syringe) 25 gm SLOW IVP PRN PRN PRN Reason: Hypoglycemia Enoxaparin Sodium (Enoxaparin Sodium 40 Mg/0.4 Ml Syringe) 40 mg SC 0900 [facility] Last Admin: 07/09/20 09:20 Dose: 40 mg Documented by: Glucagon (Glucagon 1 Mg/Ml Vial) 1 mg IM PRN PRN PRN Reason: Hypoglycemia Hydrochlorothiazide (Hydrochlorothiazide 25 Mg Tab) 25 mg PO NOW [facility] Stop: 07/09/20 15:00 Last Admin: 07/09/20 12:07 Dose: 25 mg Documented by: Dextrose/Water (D5w) 1,000 mls @ 0 mls/hr IV .Q0M PRN PRN Reason: Hypoglycemia Ibuprofen (Ibuprofen 200 Mg Tab) 400 mg PO Q4H PRN PRN Reason: Headache, Aches or Pain Last Admin: 07/08/20 17:48 Dose: 400 mg Documented by: Levothyroxine Sodium (Levothyroxine 175 Mcg Tab) 175 mcg PO 0600 [facility] Last Admin: 07/09/20 05:10 Dose: 175 mcg Documented by: Loratadine (Loratadine 10 Mg Tab) 10 mg PO DAILY PRN PRN Reason: Allergies Last Admin: 07/08/20 12:37 Dose: 10 mg Documented by: Mometasone Furoate/Formoterol Fumar (Mometasone 200 Mcg/Formoterol 5 Mcg 120 Puff Inhaler) 1 puff INH BID-RT ROCCO Last Admin: 07/09/20 08:09 Dose: 1 puff Documented by: Prednisone (Prednisone 20 Mg Tab) 40 mg PO NOW ROCCO Stop: 07/09/20 15:00 Last Admin: 07/09/20 12:07 Dose: 40 mg Documented by: Vital Signs & Weight: Vital Signs Temp Pulse Resp BP Pulse Ox 07/09/20 12:09 98.6 F 85 17 120/84 97 07/09/20 08:15 97 07/09/20 08:09 94 16 93 L 07/09/20 03:51 97.8 F 88 18 100/59 L 92 L Weight 218 lb 1.6 oz - Physical Exam General: alert & oriented x3 HEENT: mucus membranes moist Neck: supple neck Cardiac: regular rate and rhythm Lungs: other (left crackles.) Neuro: grossly intact Abdomen: active bowel sounds Extremities: no edema Skin: clear Musculoskeletal: no pain - Labs Result Diagrams: 07/09/20 10:00 07/08/20 09:28 Troponin/CKMB CK-MB (CK-2) 0.8 ng/mL (0-6.6) 07/07/20 08:11 Troponin I 0.020 ng/mL (< 0.028) 07/07/20 14:03 - Telemetry Sinus rhythms and dysrhythmias: sinus rhythm - Assessment/Plan Assessment/Plan: 1. Atypical pneumonia PLAN: - Will sign off. Please call with any questions.
[2020-07-09 16:34] VITALS: BP 132/78; TEMP 98.3
--- NOTE | 2020-07-09 19:44 | CON ---
DATE OF CONSULTATION: 07/09/2020 HISTORY OF PRESENT ILLNESS: Ms. Casey is very pleasant 60-year-old female, admitted from the emergency department with complaints of cough and chest discomfort. She felt short of breath as well. CT scanning in the ER showed small patchy bilateral infiltrates. I was consulted by Cardiology and talked to Dr. Cox about her. He has essentially ruled out cardiac component to all of this. PAST MEDICAL HISTORY: Remarkable for hypertension, lipid disorder, asthma, and prediabetes. MEDICATIONS: Prior to this admission, she was on; 1. Beta alyssa. 2. Atorvastatin. 3. Hydrochlorothiazide. 4. Metformin. 5. VESIcare. SOCIAL HISTORY: She is a nonsmoker and nondrinker. PAST SURGICAL HISTORY: She has had two shoulder surgeries and two C-sections in the past. REVIEW OF SYSTEMS: Ten points otherwise negative. PHYSICAL EXAMINATION: GENERAL: She is in no distress. VITAL SIGNS: She is afebrile. Heart rate is in 80s, respiratory rates in the teens, oximetry is 97 on room air, blood pressure 120/84. HEAD AND NECK: Unremarkable. LUNGS: Clear. HEART: Regular rhythm. ABDOMEN: Soft. EXTREMITIES: Without edema. LABORATORY DATA: White count 12.9, hemoglobin 14.9, platelets 244. Electrolytes were normal on the . IMPRESSION: Atypical pneumonia. I would send her home on Levaquin 500 mg a day for seven more days, and prednisone 20 mg for four days, then 10 mg for four days. [facility] at her request. There is no indication for home oxygen. I have suggested she follow up with a chest x-ray in 6 weeks. This is a 70 min consult with greater than 50% of the time spent on the unit with coordination of care. Job ID: [id number] [facility]
--- NOTE | 2020-07-10 06:54 | CON ---
DATE OF CONSULTATION: HISTORY OF PRESENT ILLNESS: Meghann Casey is a 60-year-old female whom I have seen in the office before, came to the hospital after developing shortness of breath, coming to work, could not breathe, could not walk 50 feet. In the ER, CT chest was done, which showed no PE, but evidence of questionable left-sided infiltrate. She had no fever. No chills. No wheezing. She has been placed on Singulair 10 mg a day and Symbicort inhaler to be taken as needed, which she says she was using regularly. She has been seen by Cardiology. Cardiac workup was negative. This morning, she says when she is walking, her heart rate went up to 120, respiratory rate went up to 25, but otherwise her oxygen saturation remains adequate. In the ER, her saturations were 98% on room air, respiratory rate 20, and blood pressure was 126/87. PAST MEDICAL HISTORY: 1. Hypertension. 2. High cholesterol. 3. Chronic cough. 4. BPH. MEDICATIONS: Chronic medicine from home: 1. Metformin 500. 2. Synthroid 175. 3. Hydrochlorothiazide 25 mg twice a day. 4. Singulair 10. 5. Symbicort. PREVIOUS SURGERIES: Have included otherwise: 1. Right shoulder surgery. 2. . SOCIAL HISTORY: No smoking, former smoker. ALLERGIES: NONE. REVIEW OF SYSTEMS: Ten-point negative. PHYSICAL EXAMINATION: VITAL SIGNS: Temperature 98, pulse 70, respiratory rate 16, saturations 98% on room air, and blood pressure 100/59. CHEST: No wheezing. No crackles. CARDIAC: Normal S1 and S2. No gallops. ABDOMEN: No masses. LABORATORY DATA: White count 12,000. D-dimer slightly elevated. C-reactive protein is 20. Ferritin 386. Coronavirus test was negative. ASSESSMENT: 1. Dyspnea, etiology unclear, possibly early left-sided pneumonia. 2. . 3. Morbid obesity. 4. Diabetes. 5. Hypertension. 6. Palpitation. 7. Abnormal CT chest. PLAN: She appears to be stable pulmonary diehl. I agree with sending her home on a previous home medicine, which is Symbicort 160/4.5 twice a day, Singulair 10 at nighttime, brief course of prednisone, and antibiotics. She is to see me in the office in a month. Job ID: [id number]
--- NOTE | 2020-07-10 23:40 | PQF ---
CLINICAL DOCUMENTATION CLARIFICATION FORM: Dear : Debra Cartagena Date / Time: 07/11/2020 Please exercise your independent, professional judgment in responding to the clarification form. Clinical indicators are provided on the bottom of this form for your review Please check appropriate box(es): [ ] Sepsis due to Atypical Pneumonia [ X ] Localized infection without sepsis [ ] Other diagnosis, please specify [ ] Unable to determine In addition, please specify: Present on Admission (POA): [ X ] Yes [ ] No [ ] Unable to determine Physician Signature: Date/Time: For continuity of documentation, please document condition throughout progress notes and discharge summary. Thank You. To be completed by CDI/Coding staff for physician review: Present Clinical Indicators - Signs / Symptoms / Labs Results and Location in Medical Record [x] WBC 18.2, Plt count 326, Nuetrophils 63.6, Lactic acid 1.5 Laboratory 07/07 [x] Blood culture: No growth Microbiology 07/07 [x] BP 126/87, Pulse 109, Resp 20, Temp 98.4 Vital signs 07/07 [x] Pt states SOB with exertion H&P p1 07/07 [facility] [x] Atypical pneumonia DS p1 07/09 Dr Cartagena [x] Sinuc tachycardia on exertion DS p1 07/09 Dr Cartagena [x] Leukocytosis DS p1 07/09 Dr Cartagena [x] CT of chest: groundglass opacity changes within the lungs CT of chest 07/07 Present Risk Factors Results and Location in Medical Record [x] 60 year-old Female H&P p1 07/07 [facility] [x] DM H&P p1 07/07 [facility] [x] Asthma H&P p1 07/07 [facility] [x] Atypical pneumonia DS p1 07/09 Dr Cartagena [x] Former Smoker ED Notes 07/07 [x] Morbid Obesity Consult 07/10 Present Treatments Results and Location in Medical Record [x] IVF NS 1L AUG 06 [x] IV Rocephin 1 gm AUG 06 [x] Omnicep 300 mg oral AUG 07 CDS/Clinical Laboratory Medical Director Signature: Desiree Shelby [facility] Phone #: [phone] Date/Time: 07/11/20 This is a permanent part of the Medical Record [facility]
== END 2020-07-09 16:30 | disposition home or self-care (01) | DRG 195 ==
LOC: ERS 07:59 → EEVIPCON 11:10 → 2NO 11:10
PROVIDERS: ADMIT Internal Medicine; ATTEND Internal Medicine
DX: J18.9 Pneumonia, unspecified organism (principal); I10 Essential (primary) hypertension; E78.5 Hyperlipidemia, unspecified; F41.9 Anxiety disorder, unspecified; F32.9 Major depressive disorder, single episode, unspecified; J45.909 Unspecified asthma, uncomplicated; E11.9 Type 2 diabetes mellitus without complications; Z20.822 Contact with and (suspected) exposure to COVID-19; K21.9 Gastro-esophageal reflux disease without esophagitis; E78.00 Pure hypercholesterolemia, unspecified; E66.01 Morbid (severe) obesity due to excess calories; Z68.36 Body mass index [BMI] 36.0-36.9, adult; Z87.891 Personal history of nicotine dependence; Z79.899 Other long term (current) drug therapy; Z79.84 Long term (current) use of oral hypoglycemic drugs
CPT/HCPCS: 36415; 36416; 36600; 71045; 71046; 71275; 80053; 81003; 81015; 82150; 82553; 82728; 82805; 83036; 83605; 83690; 83880; 84443; 84484; 85025; 85027; 85379; 85652; 86140; 86141; 86769; 87040; 87086; 93005; 93306; 96365; J0696; J1650; J3490; J7512; Q9967

== ENCOUNTER 2021-01-16 11:17 | Outpatient (CLI) | payer BC | END 2021-01-16 11:18 | disposition home or self-care (01) | LOC: BICRAD 11:17 | PROVIDERS: ATTEND Internal Medicine Critical Care Medicine | DX: R06.00 Dyspnea, unspecified (principal) | CPT/HCPCS: 71046 ==